=== PATIENT | female | born 1980 | race Caucasian/White ===

== ENCOUNTER 2018-06-12 22:01 | Emergency (ER) | payer OTHER, BC, SELFPAY ==
[2018-06-12 22:07] VITALS: BP 147/74; PULSE 94; RESP 20; TEMP 36.6; O2SAT 97
--- NOTE | 2018-06-12 22:21 | DI.CT_ITS ---
SYMPTOMS/DIAGNOSIS: MIDLINE C-SPINE PAIN AFTER NONTRAUMATIC FALL CRANIAL CT: A noncontrast enhanced examination was performed. There is no evidence of an intra/extra-axial hemorrhage. The locke-white matter differentiation is maintained throughout. The ventricles are intact. Incidental note is made of a cystic region posteriorly, likely representing an arachnoid cyst. There is no evidence of a skull fracture. As visualized, the paranasal sinuses are intact. SUMMARY: No acute intracranial abnormality is demonstrated. CERVICAL SPINE: Straightening of the normal cervical lordosis is demonstrated. The patient is status post C5-6 fusion. There is no evidence of a fracture or subluxation. The prevertebral soft tissues are intact. SUMMARY: No evidence of an acute fracture or dislocation.
--- NOTE | 2018-06-12 22:21 | DI.RAD_ITS ---
SYMPTOMS/DIAGNOSIS: LEFT SHOULDER PAIN S/P FALL LEFT SHOULDER: There is no evidence of a fracture or dislocation.
--- NOTE | 2018-06-12 22:30 | ED.GENADUL_ITS ---
Discharge Plan Disposition Patient Disposition: HOME Condition: Good Discharge Details Chief Complaint: Nk/Back Pain Clinical Impression: Cervical muscle pain Reason For Visit: neck pain Primary Care Provider: Kate Vee ED Provider: Joel Harris Home Meds and New Rx's Prescriptions: New acetaminophen [Mapap Extra Strength] 500 MG tablet 1,000 mg PO Q6H 5 Days Qty: 60 RF: 0 lidocaine [Lidoderm] 1 PATCH patch 1 ea Topical Q24H Qty: 4 RF: 0 cyclobenzaprine 7.5 mg tablet 7.5 mg PO TID Qty: 10 RF: 0 No Action acetaminophen [Tylenol Extra Strength] 500 MG tablet 1,000 mg PO Q6H PRN RF: 0 methotrexate sodium 2.5 MG tablet 7.5 mg PO RF: 0 methocarbamol [Robaxin] 500 MG tablet 500 mg PO PRN PRNRF: 0 celecoxib [Celebrex] 100 MG capsule 100 mg PO BID RF: 0 sertraline 50 MG tablet 50 mg PO DAILY RF: 0 Discharge Instructions Instructions: Musculoskeletal Pain (ED) Additional Instructions: Please take medication as directed. If you notice any worsening of your symptoms, or any new symptoms such as vomiting, diarrhea, fever, chills, shortness of breath, chest pain, numbness, weakness, or fainting , please return immediately to the emergency department for reevaluation. Please follow up with your primary care provider as soon as possible for reassessment and reevaluation. As always, it was a pleasure participating in your medical care today. Referrals: Kate Vee [Primary Care Provider] - Medical Decision Making This is a 37-year-old female with a chronic history of cervical spine surgeries and chronic neck pain who presents for neck pain. She slipped in the kitchen, and had a whiplash-like movement of her neck and left shoulder. She did not fall, hit her head, or of any loss of consciousness. She demonstrates paraspinal pain and midline C-spine tenderness on exam. No associated neurologic deficit, or step-off sign. Because of her previous surgical history we will get a CT scan to evaluate for any acute osseous abnormality. We will treat the patient's pain, and reassess post imaging and pain medication administration. 11:44 PM Patient's x-ray of the right shoulder demonstrates no evidence of fracture, no acute bony abnormality per virtual radiology. CT scan of the head and neck per virtual radiology demonstrate no evidence of acute intracranial injury, there is some straightening of the normal cervical lordosis. This may be due to muscle spasm or patient positioning. There is no evidence of fracture or subluxation. The patient's pain is improved. With no signs of significant osseous abnormality, no neurologic deficits, no significant abnormalities on exam I feel she can be safely discharged home with close follow-up with her PCP. We discussed red flags which return the patient understands I have extensively reviewed the treatment plan and discharge instructions with the patient. I have addressed all patient concerns at this time. The patient was made aware of what symptoms to monitor for that would warrant a return to the emergency department. Discussed the plan with the patient, they demonstrate verbal understanding and agreement with our assessment and plan at this time. HPI General Date/Time Provider Initiated Documentation: 06/12/18 22:02 . HPI Narrative: This is a 37-year-old female with past medical history of cervical radiculopathy, and previous cervical spine surgery secondary to a [employer]. injury. She presents today for neck and left shoulder pain. She states she was in her kitchen and slipped on wet ground, it caused her to have a whiplash-like effect. She did not lose consciousness, she did not hit her head, she did not even fall to the ground but she did have to move quickly to catch herself which she states caused her a significant amount of pain in her neck and left shoulder. Patient denies any associated numbness, tingling or weakness. Pain is located in the middle of her neck and radiates to the left shoulder. She denies any headache, vision changes, blood thinner use. Patient denies any other associated symptoms at this time. Her symptoms are made worse with movement. Relieved by nothing. She does take normal Robaxin, and Celebrex and this is not improved her symptoms. Patient denies any pertinent family history, she denies any IV or illicit drug use Related Data Home Medications Medication Instructions Recorded Confirmed celecoxib [Celebrex] 100 mg PO BID 03/23/17 06/12/18 methocarbamol [Robaxin] 500 mg PO PRN PRN 03/23/17 06/12/18 sertraline 50 mg PO DAILY 03/23/17 06/12/18 acetaminophen [Tylenol Extra 1,000 mg PO Q6H PRN tab-cap 10/24/17 06/12/18 Strength] methotrexate sodium 7.5 mg PO 10/26/17 acetaminophen [Mapap Extra 1,000 mg PO Q6H 5 Days #60 tab 06/12/18 Strength] cyclobenzaprine 7.5 mg PO TID #10 tab 06/12/18 lidocaine [Lidoderm] 1 ea TOPICAL Q24H #4 patch 06/12/18 Previous Rx's Medication Instructions Recorded acetaminophen [Mapap Extra 1,000 mg PO Q6H 5 Days #60 tab 06/12/18 Strength] cyclobenzaprine 7.5 mg PO TID #10 tab 06/12/18 lidocaine [Lidoderm] 1 ea TOPICAL Q24H #4 patch 06/12/18 Allergies Allergy/AdvReac Type Severity Reaction Status Date / Time acetaminophen [From Vicodin] Allergy Unverified 06/12/18 22:19 hydrocodone [From Vicodin] Allergy Unverified 06/12/18 22:19 leflunomide [From Arava] Allergy Unverified 06/12/18 22:19 tramadol Allergy Unverified 06/12/18 22:19 adalimumab [From Humira] AdvReac Unverified 06/12/18 22:19 etanercept [From Enbrel] AdvReac Unverified 06/12/18 22:19 hydroxychloroquine AdvReac Unverified 06/12/18 22:19 [From Plaquenil] General Stated Complaint: Nk/Back Pain FELIPE: 3 Review of Systems Review of Systems All systems reviewed & are unremarkable except as noted in HPI and below PFSH Medical History Abnormal noncervical pap smear Depression Ganglion of tendon Herniation of intervertebral disc at C5-C6 level History of tobacco use Migraine headache Neck pain Recurrent otitis media Rheumatoid arthritis Surgical History Cervical Procedure section neck fusion Exam Narrative Exam Narrative: 1.Const: Well-nourished, Well-developed, appearing stated age 2.Eyes: PERRL, no conjunctival injection, and symmetrical lids. 3.ENT: Atraumatic external nose and ears. Moist MM. Neck: Symmetric, trachea midline, No thyromegaly. There is no evidence of raccoon eyes, davila sign, CSF rhinorrhea, mastoid tenderness, cranial crepitus, hemotympanum, exophthalmos , or hyphema. 4.CVS: +S1/S2, No murmurs or gallops. Peripheral pulses 2+ and equal in all extremities. Brisk capillary refill in all extremities. 5.RESP: Unlabored respiratory effort. Clear to auscultation bilaterally. No wheezes rales or rhonchi 6.GI: Soft, Nontender/Nondistended, No hepatosplenomegaly. No guarding or rebound. 7.MSK: Normocephalic/Atraumatic, Extremities w/o deformity or ttp No cyanosis or clubbing, Normal movement of all extremities no midline tenderness to palpation over the TLS spine. Normal ROM in flexion, extension, side bend, and rotation. Patient does have midline cervical spine tenderness over C3-C6. She also has paraspinal tenderness. Old scars are noted. No evidence of step-off sign. Pain is worse with movement. Patient is currently in a c-collar. Patient has +5 out of 5 strength in the lower extremities in dorsiflexion and plantarflexion, knee flexion and extension, hip flexion and extension. There is +2 over 2 dorsalis pedis pulses bilaterally. There is normal sensation to the skin with light touch at the foot, knee, and hip. Normal saddle sensation. Good sensation over the deep sural nerve area bilaterally. Rectal exam deferred. Reflexes are +2 over 4 in the patellar reflex bilaterally. +5 out of 5 strength in the medial, ulnar, radial nerve distribution bilaterally in the hands as well as intact light touch sensation to these dermatomes on the hands. Evaluation of the left shoulder demonstrates no pain or tenderness on movement for external and internal rotation flexion and extension, or any other abnormalities. No signs of significant trauma. 8.Skin: Warm, Dry. No rashes or lesions. 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 Sensation grossly intact, no focal neurologic deficits. 10.Psych: (AAO) x3. Appropriate mood and affect Course Vital Signs Temperature 36.6 C 06/12/18 22:07 Pulse 94 H 06/12/18 22:07 Respiratory Rate 20 06/12/18 22:07 Blood Pressure 147/74 H 06/12/18 22:07 Pulse Oximetry 97 06/12/18 22: Temperature 36.6 C 06/12/18 22:07 Temperature Source Tympanic 06/12/18 22:07 Pulse 94 H 06/12/18 22:07 Respiratory Rate 20 06/12/18 22:07 Respiratory Effort 06/12/18 22:12 Blood Pressure 147/74 H 06/12/18 22:07 Pulse Oximetry 97 06/12/18 22:07 Oxygen Delivery Method Room Air 06/12/18 22:07 Oxygen Flow Rate 0 06/12/18 22:07 Pain Level 9 06/12/18 22:07
[2018-06-12] MEDS: MORPHine 10 MG/ML VIAL 4 MG IM (22:34)
[2018-06-12] MEDS: Dexamethasone 4 MG TAB 10 MG PO (22:35)
[2018-06-12] MEDS: Lidocaine 5% Patch 1 PATCH TP (22:36)
[2018-06-12] MEDS: Cyclobenzaprine 10 MG TAB PO (22:37)
[2018-06-12] MEDS: Acetaminophen 500 MG TAB 1000 MG PO (22:38)
--- NOTE | 2018-06-12 23:24 | DI.VRAD_ITS ---
EXAM: CT Head Without Intravenous Contrast EXAM DATE/TIME: 06/12/2018 10:25 PM CLINICAL HISTORY: 37 years old, female; Pain; Other: Neck pain; Prior surgery; Surgery date: 6+ months; Surgery type: Cervical fusion; Patient HX: Fall, neck pain TECHNIQUE: Axial computed tomography images of the head/brain without intravenous contrast. All CT scans at this facility use at least one of these dose optimization techniques: automated exposure control; mA and/or kV adjustment per patient size (includes targeted exams where dose is matched to clinical indication); or iterative reconstruction. Coronal and sagittal reformatted images were created and reviewed. COMPARISON: No relevant prior studies available. FINDINGS: The ventricles, sulci and basilar cisterns are normal for the patient's stated age. There is no evidence for acute infarct. There is no intra-axial mass. There is a cystic structure posteriorly likely representing an arachnoid cyst. There is no hemorrhage. There are no extra-axial fluid collections. There is no midline shift. The skull is intact. The visualized paranasal sinuses are well aerated. IMPRESSION: No evidence for acute intracranial injury. EXAM: CT Cervical Spine Without Intravenous Contrast EXAM DATE/TIME: 06/12/2018 10:25 PM CLINICAL HISTORY: 37 years old, female; Pain; Other: Neck pain; Prior surgery; Surgery date: 6+ months; Surgery type: Cervical fusion; Patient HX: Fall, neck pain TECHNIQUE: Axial computed tomography images of the cervical spine without intravenous contrast. All CT scans at this facility use at least one of these dose optimization techniques: automated exposure control; mA and/or kV adjustment per patient size (includes targeted exams where dose is matched to clinical indication); or iterative reconstruction. Coronal and sagittal reformatted images were created and reviewed. COMPARISON: No relevant prior studies available. FINDINGS: There is some straightening of the normal cervical lordosis. This may be due to muscle spasm or patient positioning. There is no evidence of fracture or subluxation. The patient is status post fusion at C5-6 both anteriorly and posteriorly. This does cause significant streak artifact. The vertebral bodies are of normal height. The remaining disc spaces are well-maintained. The prevertebral soft tissues and the predental space are unremarkable. There is no significant central stenosis. There are mild degenerative changes of the facet joints and uncovertebral joints. The lung apices are clear. The visualized soft tissues are unremarkable. IMPRESSION: 1. There is some straightening of the normal cervical lordosis. This may be due to muscle spasm or patient positioning. 2. There is no evidence of fracture or subluxation. Dictated and Authenticated by: José Miguel Leonardo MD. Ordering:FE COUGHLIN MD
--- NOTE | 2018-06-12 23:25 | DI.VRAD_ITS ---
EXAM: XR Left Shoulder Complete, 2 or More Views EXAM DATE/TIME: 06/12/2018 10:25 PM CLINICAL HISTORY: 37 years old, female; Pain; Shoulder; Left; Patient HX: Left shoulder pain after fall TECHNIQUE: XR Left shoulder complete 2 or more views. COMPARISON: No relevant prior studies available. FINDINGS: There is no evidence of fracture. The joint spaces are well maintained. There is no bony destruction. The AC joint and glenohumeral joint are unremarkable. IMPRESSION: 1. No evidence of fracture. 2. No acute bony abnormality. Dictated and Authenticated by: José Miguel Leonardo MD. Ordering:FE COUGHLIN MD
== END 2018-06-13 00:08 | disposition home or self-care (01) ==
LOC: ER 06-13 00:08
PROVIDERS: Emergency Provider Student in an Organized Health Care Education/Training Program; PCP Nurse Practitioner
DX: S16.8XXA Other specified injury of muscle, fascia and tendon at neck level, initial encounter (principal); W18.40XA Slipping, tripping and stumbling without falling, unspecified, initial encounter
CPT/HCPCS: 96372; 99284; 70450; 72125; 73030; 99285; J2270; J8540

== ENCOUNTER 2018-11-09 11:35 | Emergency (ER) | payer BC, SELFPAY ==
[2018-11-09 11:41] VITALS: BP 134/76; PULSE 93; RESP 16; TEMP 37; O2SAT 98
--- NOTE | 2018-11-09 11:57 | W.ED.GENAD ---
Discharge Plan Disposition Patient Disposition: HOME Condition: Stable Discharge Details Chief Complaint: EarProblem Clinical Impression: Otitis media Primary Care Provider: Kate Vee ED Provider: Jay Ignacio Home Meds and New Rx's Prescriptions: New cefdinir 300 mg capsule 300 mg PO Q12H 5 Days Qty: 10 RF: 0 Continued acetaminophen [Tylenol Extra Strength] 500 MG tablet 1,000 mg PO Q6H PRN RF: 0 methotrexate sodium 2.5 MG tablet 12.5 mg PO .WEEKLY RF: 0 sertraline [Zoloft] 100 mg Tablet 100 mg PO DAILY RF: 0 methocarbamol [Robaxin] 500 MG tablet 500 mg PO PRN PRNRF: 0 celecoxib [Celebrex] 100 MG capsule 100 mg PO BID RF: 0 Discharge Instructions Instructions: Otitis Media (ED) Additional Instructions: You may continue to use acetaminophen as needed for discomfort and take antibiotic for the full course of therapy. Feel free to return the emergency department for any new or worsening symptoms or further concerns otherwise follow-up with your primary care provider as needed for reassessment. Referrals: Kate Vee [Primary Care Provider] - (As needed for reassessment) Discharge Data Discharge Date/Time-TO BE ENTERED AT DEPARTURE: 11/09/18 12:15 Medical Decision Making Patient presenting the emergency department for chief complaint of right ear pain. Patient reports that for the past week she has had a cold with nasal congestion, sinus pressure sore throat and mild cough. She states over the past 24 hours she has noted some worsening right ear pain. She does state some congestion in her ears for 3 weeks as well. Physical exam does show moderately erythematous TMs with retraction and some fluid present behind the TM, mild anterior cervical lymphadenopathy, otherwise normal HEENT exam, respiratory and cardiac exam. Given the patient is just had symptoms for 24 hours she was informed that she may continue acetaminophen to see if this improves her symptoms given that she is afebrile here or if she does start the antibiotic she should take it for the full course of medication. Patient placed up on Cefdinir due to an interaction with patient's methotrexate and amoxicillin. Return precautions were discussed. After discussion of diagnosis and plan of care patient has no further needs, questions, or concerns and states clear understanding to return to the emergency department for any worsening symptoms. HPI General Mode of arrival: ambulatory. Date/Time Provider Initiated Documentation: 11/09/18 11:44. Limitations to Documentation: no limitations. Information obtained by: patient and RN notes reviewed. History of Present Illness 37 year old F presents to the emergency department with the chief complaint of earache, described as moderate, with intensity rated at 4. Quality is described as aching, and is localized to the head (right ear). Patient started experiencing this day(s) (1) No relieving factors improve symptom(s), Patient notes no other symptoms.. Patient did receive the following treatments prior to arrival, none Related Data Home Medications Medication Instructions Recorded Confirmed celecoxib [Celebrex] 100 mg PO BID 03/23/17 11/09/18 methocarbamol [Robaxin] 500 mg PO PRN PRN 03/23/17 11/09/18 acetaminophen [Tylenol Extra 1,000 mg PO Q6H PRN tab-cap 10/24/17 11/09/18 Strength] methotrexate sodium 12.5 mg PO .WEEKLY 10/26/17 11/09/18 cefdinir 300 mg PO Q12H 5 Days #10 cap 11/09/18 sertraline [Zoloft] 100 mg PO DAILY 11/09/18 11/09/18 Previous Rx's Medication Instructions Recorded cefdinir 300 mg PO Q12H 5 Days #10 cap 11/09/18 Allergies Allergy/AdvReac Type Severity Reaction Status Date / Time acetaminophen [From Vicodin] Allergy Unverified 11/09/18 11:43 hydrocodone [From Vicodin] Allergy Unverified 11/09/18 11:43 leflunomide [From Arava] Allergy Unverified 11/09/18 11:43 tramadol Allergy Unverified 11/09/18 11:43 adalimumab [From Humira] AdvReac Unverified 11/09/18 11:43 etanercept [From Enbrel] AdvReac Unverified 11/09/18 11:43 hydroxychloroquine AdvReac Unverified 11/09/18 11:43 [From Plaquenil] General Stated Complaint: EarProblem FELIPE: 4 Review of Systems Constitutional Reports fever(s) and Reports malaise Eyes Denies eye discharge ENT Reports as per HPI, Denies ear discharge, Reports otalgia, Reports nasal congestion, Denies neck pain, Reports sinus pressure and Reports sore throat Cardiovascular Denies chest pain and Denies dyspnea Respiratory Reports cough and Denies dyspnea Musculoskeletal Denies joint swelling and Denies neck pain Integumentary/Breasts Denies rash [facility] Medical History Abnormal noncervical pap smear Depression Ganglion of tendon Herniation of intervertebral disc at C5-C6 level History of tobacco use Migraine headache Neck pain Recurrent otitis media Rheumatoid arthritis Surgical History Cervical Procedure section neck fusion Social History Smoking/Tobacco Use Status: Former Tobacco Use Alcohol Intake: current Drug use: Never Substance use type: does not use Do you feel safe in your relationship?: Yes Exam Const General: cooperative, comfortable and no acute distress Orientation: alert and awake HENMT Head: normal to inspection, normocephalic and atraumatic Ears: hearing grossly normal bilaterally and TM abnormal erythematous bilaterally (mild), with fluid behind the TM bilaterally and retracted bilaterally; with no loss of landmarks General nose exam: external nose normal Face and sinus: normal facial exam, sinuses nontender and no erythema Mouth: oral mucosae normal, no drooling, no muffled voice and no trismus Throat: posterior oropharynx normal, tonsils normal and uvula midline Neck Neck: normal visual inspection, full ROM, no lymphadenopathy, no meningeal signs, trachea midline and supple Resp Effort & Inspection: normal respiratory effort and able to speak in complete sentences Auscultation: clear to auscultation bilaterally Cardio Rate: regular rate Rhythm: regular rhythm Heart Sounds: S1 normal, S2 normal, normal S1 and S2, no click, no gallops, no murmurs and no rubs Skin General skin exam: no rashes or lesions noted and dry skin (warm) Neuro General: alert, awake, oriented x3, gait normal and moves all extremities Cognition: normal cognition Speech: speech normal Course Vital Signs Temperature 37 C 11/09/18 11:41 Pulse 93 H 11/09/18 11:41 Respiratory Rate 16 11/09/18 11:41 Blood Pressure 134/76 11/09/18 11:41 Pulse Oximetry 98 11/09/18 11:41 Temperature 37 C 11/09/18 11:41 Temperature Source Skin 11/09/18 11:41 Pulse 93 H 11/09/18 11:41 Respiratory Rate 16 11/09/18 11:41 Respiratory Effort Non-Labored 11/09/18 11:41 Blood Pressure 134/76 11/09/18 11:41 Blood Pressure Position Sitting 11/09/18 11:41 Pulse Oximetry 98 11/09/18 11:41 Oxygen Delivery Method Room Air 11/09/18 11:41 Oxygen Flow Rate 0 11/09/18 11:41 Pain Level 4 11/09/18 11:41
== END 2018-11-09 12:15 | disposition home or self-care (01) ==
PROVIDERS: Emergency Provider Nurse Practitioner Family; PCP Nurse Practitioner
DX: H66.91 Otitis media, unspecified, right ear (principal)
CPT/HCPCS: 99283

== ENCOUNTER 2019-03-19 15:20 | Emergency (ER) | payer OTHER, BC, SELFPAY ==
[2019-03-19 15:23] VITALS: BP 142/82; PULSE 109; RESP 15; TEMP 36.7; O2SAT 96
--- NOTE | 2019-03-19 15:34 | W.ED.GENAD ---
Discharge Plan Disposition Patient Disposition: HOME Condition: Fair Discharge Details Chief Complaint: Nk/Back Pain Clinical Impression: Post-operative pain Primary Care Provider: Kate Vee ED Provider: Sarika Chisholm Home Meds and New Rx's Prescriptions: New hydromorphone [Dilaudid] 2 mg tablet 2 mg PO Q4H PRN (Reason: pain) Qty: 14 RF: 0 cyclobenzaprine 10 mg tablet 10 mg PO TID PRN (Reason: muscle spasm) Qty: 14 RF: 0 Narcan 4 mg/actuation spray,non-aerosol 1 spray HAJA ONCE PRN (Reason: opioid overdose) Qty: 2 RF: 0 Discontinued oxycodone 5 mg Tablet 15 mg PO Q4H PRNRF: 0 methocarbamol [Robaxin] 500 MG tablet 500 mg PO PRN PRNRF: 0 No Action acetaminophen [Tylenol Extra Strength] 500 MG tablet 1,000 mg PO Q6H PRN RF: 0 methotrexate sodium 2.5 MG tablet 12.5 mg PO .WEEKLY RF: 0 sertraline [Zoloft] 100 mg Tablet 100 mg PO DAILY RF: 0 celecoxib [Celebrex] 100 MG capsule 100 mg PO BID RF: 0 Discharge Instructions Additional Instructions: Encourage hydration. Please continue postoperative instructions regarding collar and mobilization. Please monitor for signs of infection including redness, warmth, drainage, increased pain, fever/chills. If these or other new/worsening symptoms arise please seek care urgently once again. Please stop taking the oxycodone and methocarbamol. Please use the Dilaudid and Flexeril as prescribed to help with muscle spasm and pain. You will need follow-up with your surgeon to discuss further narcotic prescriptions and postoperative pain management, please call tomorrow to schedule appointment. You may also discuss this further with your primary care. Referrals: Kate Vee [Primary Care Provider] - Earnest Downey [ [facility] STAFF PHYSICIAN] - Discharge Data Discharge Date/Time-TO BE ENTERED AT DEPARTURE: 03/19/19 17:53 Medical Decision Making Patient is a 38-year-old female presents today with chief complaint of neck pain. Patient reports that on 03/15/2018, the patient underwent surgical intervention perform a cervical spine fusion C5, C6 and C7. She is a former Dr. Beckford by Dr. Blanco. Since the time of surgery, her pain has been uncontrolled. States she is been taking 15 mg of oxycodone every 4 hours despite this her pain has not been able to be controlled. States that she has some minimal improvement with the medication but that it wears off typically approximately 2 hours after taking. This is the patient's third surgical intervention for her C-spine, she reports that typically she has difficulty with postsurgical pain management. Denies any trauma. Has been following their orders in regard to C-spine precautions. She denies any fevers or chills. No trauma since the time of surgery. States she has been laying low. Did contact her surgeon who advised she come in for imaging and further pain medication. On exam, patient appears nontoxic. She does appear uncomfortable with movements. Her incision appears to be healing well. She does have soft tissue swelling throughout the length of the incision. [place] appear well-placed no signs of infection. Not palpate any area of fluctuance. There is no erythema or drainage. Consulted with Dr. Downey, reviewed the patient's current complaints and physical exam findings. Advised imaging to evaluate for any hardware disruption. I will attempt to manage pain better with IV Dilaudid. He also recommended using muscle relaxer. Will give Flexeril. Patient did report that typically she uses steroids in the postoperative setting. I did discuss this with the surgeon he prefers to hold off at this time on this intervention. He prefers a pain management and prompt follow-up with them. He also requested that I obtain a CBC to evaluate for any evidence of infection with leukocytosis. Patient will be given p.o. Flexeril, IV Dilaudid, will obtain CT scan and laboratory evaluation as requested. Reviewed PDMP. Patient did receive 65 oxycodone the day of surgery which was supposed to last the patient 4 days. She was taking oxycodone preoperatively as well which also may be contributing to her difficult postoperative pain management. Patient does not have any leukocytosis. Labs are reassuring. Ending CT results from radiologist. Patient does feel much improved after 1 mg of IV Dilaudid and p.o. Flexeril. Radiologist reviewed imaging: FINDINGS: Vertebrae: The patient is status post spinal fusion surgery at C5-C6. This causes artifact at this level. There are 2 anterior fixation screws at C5. This tip of the screws are beyond the confines of the vertebral body. There are 2 anterior fixation screws at C6. There are Thacker rods screws within the right-sided pedicles pedicles of C5, C6 and C7. There are Thacker rods screws within the leftsided pedicles of C5 and C7. There is straightening of the normal lordosis. The vertebral bodies maintain their height throughout. Discs/Spinal canal/Neural foramina: There are degenerative changes at C1-C2. Prevertebral Space: There is no prevertebral soft tissue swelling. Soft tissues: Unremarkable. Thyroid: The thyroid gland is within normal limits. Lungs: There are patchy densities within the upper lobes bilaterally. Clinical correlation is recommended. IMPRESSION: Status post spinal fusion surgery as above. Degenerative changes at C1-C2. Patchy densities within the upper lobes bilaterally. Clinical correlation is recommended. Patient not having any cough, is afebrile with no evidence of respiratory ailment. Consulted once again with Dr. Parrish and reviewed the above imaging and the findings of the labs. Patient is doing well with Dilaudid, will transition her to this as well as the Flexeril. We will also prescribe Narcan. He advised patient may follow-up with primary care for refill of medication given the distance she has to travel to be seen by him. Patient does report that she has been told the primary will not manage postoperative pain. I advised that she contact her tomorrow to discuss this further. Advised otherwise, she will need follow-up with Dr. Blanco as we are unable to prescribe long-term narcotics in the emergency setting. She was given strict return precautions. Feels that the change in medications will be of benefit. Reviewed PDMP, appropriate for her to be out of oxycodone with quickest possible dosing allowed. All ofher questions and concerns were addressed, she is in agreement with this plan. HPI General Mode of arrival: ambulatory. Date/Time Provider Initiated Documentation: 03/19/19 15:33. Limitations to Documentation: no limitations. Information obtained by: patient, family (accompanied by daughter) and RN notes reviewed. History of Present Illness 38 year old F presents to the emergency department with the chief complaint of postoperative neck pain, described as severe and similar to prior episodes, with intensity rated at 9. Quality is described as stabbing, and is localized to the neck. Patient extremity (states pain radiates toward bilateral shoulders). Patient started experiencing this day(s) and it has been constant. Medication improves symptom(s), (brief improvement with 15mg Oxycodone) No exacerbating factors reported . Patient notes other (denies altered sensations); denies chest pain, cough, fever/chills, headaches, nausea/vomiting, rash and weakness. Related Data Home Medications Medication Instructions Recorded Confirmed celecoxib [Celebrex] 100 mg PO BID 03/23/17 11/09/18 acetaminophen [Tylenol Extra 1,000 mg PO Q6H PRN tab-cap 10/24/17 03/19/19 Strength] methotrexate sodium 12.5 mg PO .WEEKLY 10/26/17 11/09/18 sertraline [Zoloft] 100 mg PO DAILY 11/09/18 03/19/19 cyclobenzaprine 10 mg PO TID PRN #14 tab 03/19/19 hydromorphone [Dilaudid] 2 mg PO Q4H PRN #14 tab 03/19/19 naloxone [Narcan] 1 spray HAJA ONCE PRN #2 each 03/19/19 Previous Rx's Medication Instructions Recorded cyclobenzaprine 10 mg PO TID PRN #14 tab 03/19/19 hydromorphone [Dilaudid] 2 mg PO Q4H PRN #14 tab 03/19/19 naloxone [Narcan] 1 spray HAJA ONCE PRN #2 each 03/19/19 Allergies Allergy/AdvReac Type Severity Reaction Status Date / Time hydrocodone [From Vicodin] Allergy Unverified 03/19/19 15:29 leflunomide [From Arava] Allergy Unverified 03/19/19 15:29 tramadol Allergy Unverified 03/19/19 15:29 adalimumab [From Humira] AdvReac Unverified 03/19/19 15:29 etanercept [From Enbrel] AdvReac Unverified 03/19/19 15:29 hydroxychloroquine AdvReac Unverified 03/19/19 15:29 [From Plaquenil] General Stated Complaint: Nk/Back Pain FELIPE: 3 Review of Systems Constitutional Reports as per HPI, Denies chills, Denies fever(s), Denies headache(s) and Denies weakness ENT Denies headache(s) Cardiovascular Reports as per HPI Respiratory Reports as per HPI and Denies cough Musculoskeletal Reports as per HPI and Denies tingling Integumentary/Breasts Reports as per HPI, Denies rash and Denies wounds Neurologic Reports as per HPI, Denies headache(s), Denies tingling, Denies paresthesias and Denies weakness [facility] Medical History Abnormal noncervical pap smear Depression Ganglion of tendon Herniation of intervertebral disc at C5-C6 level History of tobacco use Migraine headache Neck pain Recurrent otitis media Rheumatoid arthritis Surgical History Cervical Procedure section neck fusion Social History Smoking/Tobacco Use Status: Former Tobacco Use Alcohol Intake: current Alcohol Intake frequency: a few times a month Drug use: Never Substance use type: does not use Do you feel safe at home: Yes Do you feel safe in your relationship?: Yes Exam Const General: cooperative, healthy appearing, uncomfortable (patient appears uncomfortable), no acute distress, well developed and well groomed Nutritional Appearance: average body habitus and well nourished Orientation: alert and awake Neck Neck: limited ROM (in collar) Resp Effort & Inspection: normal respiratory effort, able to speak in complete sentences and no respiratory distress Auscultation: clear to auscultation bilaterally Cardio Rate: regular rate Rhythm: regular rhythm Heart Sounds: S1 normal and S2 normal Back/Spine/Pelvis Cervical Spine: No normal cervical lordosis, collar present, loss of normal cervical lordosis, cervical muscular tenderness (pain with palpation superficially and alterally), scars present, cervical spinal tenderness (incision closed with little, healing well, soft tissue swelling) and No step off deformity Skin General skin exam: no ecchymosis, no erythema, no fluctuance, no hypertrophy, no induration and other (soft tissue swelling) Neuro General: alert and awake Cognition: normal cognition Speech: speech normal Gait: normal gait Motor: muscle tone normal throughout Sensory Exam: no sensory deficits noted Extrem General: normal to inspection, full ROM, normal capillary refill and no joint enlargement Psych Appearance: grossly normal and well kempt Mental Status: mental status grossly normal Speech and Movement: speech and movement normal Course Vital Signs Temperature 36.7 C 03/19/19 15:23 Pulse 109 H 03/19/19 15:23 Respiratory Rate 15 03/19/19 15:23 Blood Pressure 142/82 H 03/19/19 15:23 Pulse Oximetry 96 03/19/19 15:23 Temperature 36.7 C 03/19/19 15:23 Temperature Source Temporal Artery Scan 03/19/19 15:23 Pulse 109 H 03/19/19 15:23 Respiratory Rate 15 03/19/19 15:23 Respiratory Effort Non-Labored 03/19/19 15:28 Blood Pressure 142/82 H 03/19/19 15:23 Blood Pressure Position Sitting 03/19/19 15:23 Pulse Oximetry 96 03/19/19 15:23 Oxygen Delivery Method Room Air 03/19/19 15:23 Oxygen Flow Rate 0 03/19/19 15:23 Pain Level 9 03/19/19 15:23
--- NOTE | 2019-03-19 16:07 | DI.CT_ITS ---
SYMPTOMS/DIAGNOSIS: ASSESS HARDWARE PLACEMENT CT SCAN OF THE CERVICAL SPINE: Multiple contiguous axial images of the cervical spine were obtained. Sagittal and coronal reformatted images were evaluated on the Siemens workstation. There is disc fusion at C 5 - 6 with an anterior plate and fixation screws. The two screws seen in the C 5 vertebral body extend beyond the confines of the vertebral body. There are two anterior fixation screws at C 6. There are Thacker rods extending from C 5 through C 7 with pedicle screws on the left at C 5 and C 7 and pedicle screws on the right at C 5, 6 and 7. There is straightening of the normal cervical lordosis. No acute fractures or subluxations are seen. The prevertebral soft tissues are unremarkable. There are skin little seen on the posterior neck. Air space opacities are seen in the lung apices bilaterally. IMPRESSION: 1. Status post spinal fusion. Surgery as described above. 2. Patchy air space opacities in the upper lobes of the lungs bilaterally. Atelectasis or pneumonia. Please correlate clinically.
[2019-03-19] MEDS: Cyclobenzaprine 10 MG TAB PO (16:26)
[2019-03-19] MEDS: HYDROmorphone 2 MG/ML VIAL 1 MG IVP (16:26)
[2019-03-19 16:27] LABS: Abs Immature Grans 0.02 k/cumm (0.0-0.09); Absolute Basophil Count 0.01 k/cumm (0.0-0.2); Absolute Eosinophil Count 0.16 k/cumm (0.0-0.7); Absolute Lymphocyte Count 1.93 k/cumm (1.2-3.4); Absolute Monocyte Count 0.63 k/cumm (0.11-0.7); Absolute Neutrophil Count 6.34 k/cumm (1.2-6.7); Basophils % 0.1; Eosinophils % 1.8; HCT 31.7 % (36.0-46.0); HGB 10.7 g/dL (12.0-15.5); Immature Grans % 0.2; Lymphocytes % 21.2; Mean Corp. HGB Concentration 33.8 g/dL (32.0-36.0); Mean Corpuscular Hemoglobin 31.8 pg (27.0-33.0); Mean Corpuscular Volume 94.1 fL (80-95); Mean Platelet Volume 8.6 fL (8.0-11.0); Monocytes % 6.9; Neutrophils % 69.8; Platelet Count 346 x1000/uL (130-400); RBC 3.37 m/cumm (4.00-5.20); RBC Distribution Width 12.9 % (11.7-14.6); White Blood Cell Count 9.09 k/cumm (4.4-10.8)
[2019-03-19] MEDS: Normal Saline 500 ML IV (16:27)
[2019-03-19 16:31] LABS: Anion Gap 10.2 mmol/L (3-11); BUN 6 mg/dL (7-18); CO2 26.8 mmol/L (21.0-32.0); CREATININE 0.45 mg/dL (0.55-1.02); Calcium 9.4 mg/dL (8.5-10.1); Chloride 100 mmol/L (98-107); Glucose 104 mg/dL (70-100); Potassium 3.7 mmol/L (3.5-5.1); Sodium 137 mmol/L (136-145)
--- NOTE | 2019-03-19 17:20 | DI.VRAD_ITS ---
EXAM: CT Cervical Spine Without Contrast EXAM DATE/TIME: 03/19/2019 4:07 PM CLINICAL HISTORY: 38 years old, female; Other: Assess hardware placement TECHNIQUE: Imaging protocol: Computed tomography images of the cervical spine without contrast. Coronal and sagittal reformatted images were created and reviewed. Radiation optimization: All CT scans at this facility use at least one of these dose optimization techniques: automated exposure control; mA and/or kV adjustment per patient size (includes targeted exams where dose is matched to clinical indication); or iterative reconstruction. COMPARISON: CT CERVICAL SPINE WITHOUT CONT. 08/03/2017 4:59 PM FINDINGS: Vertebrae: The patient is status post spinal fusion surgery at C5-C6. This causes artifact at this level. There are 2 anterior fixation screws at C5. This tip of the screws are beyond the confines of the vertebral body. There are 2 anterior fixation screws at C6. There are Thacker rods screws within the right-sided pedicles pedicles of C5, C6 and C7. There are Thacker rods screws within the left-sided pedicles of C5 and C7. There is straightening of the normal lordosis. The vertebral bodies maintain their height throughout. Discs/Spinal canal/Neural foramina: There are degenerative changes at C1-C2. Prevertebral Space: There is no prevertebral soft tissue swelling. Soft tissues: Unremarkable. Thyroid: The thyroid gland is within normal limits. Lungs: There are patchy densities within the upper lobes bilaterally. Clinical correlation is recommended. IMPRESSION: Status post spinal fusion surgery as above. Degenerative changes at C1-C2. Patchy densities within the upper lobes bilaterally. Clinical correlation is recommended. Dictated and Authenticated by: Fritz Brown MD. Ordering:JAYE Baum MD
[2019-03-19 17:52] VITALS: BP 142/82; PULSE 109; RESP 15; TEMP 36.7; O2SAT 96
== END 2019-03-19 17:53 | disposition home or self-care (01) ==
PROVIDERS: Emergency Provider Physician Assistant; PCP Nurse Practitioner
DX: G89.18 Other acute postprocedural pain (principal); M54.2 Cervicalgia
CPT/HCPCS: 36415; 80048; 96361; 96374; 99284; 72125; 85025